=== PATIENT | male | born 1950 | race Caucasian/White ===

== ENCOUNTER 2020-08-13 08:37 | Emergency (ER) | payer OTHER ==
[2020-08-13 10:08] LABS: BILIRUBIN NEGATIVE (NEGATIVE); BLOOD NEGATIVE Ery/uL (NEGATIVE); CLARITY CLEAR (CLEAR); COLOR YELLOW (YELLOW); GLUCOSE (U) NORMAL (NORMAL); LEUKOCYTES NEGATIVE Leu/uL (NEGATIVE); NITRITE NEGATIVE (NEGATIVE); PROTEIN NEGATIVE (NEGATIVE); SPECIFIC GRAVITY 1.015 (1.001-1.030); pH 7.5 (5.0-9.0)
[2020-08-13 10:11] LABS: BASOPHIL 0.4 % (0-2); EOSINOPHIL 1.1 % (0-7); HCT 47.1 % (42.0-52.0); HGB 15.9 g/dl (13.2-18.0); LYMPHOCYTE 18.1 % (15-48); MCH 32.1 pg (25.0-31.0); MCHC 33.8 g/dL (32.0-36.0); MONOCYTE 6.4 % (0-12); MPV 10.1 fL (6.0-9.5); NEUTROPHIL 72.9 % (41-80); NRBC 0; PLT 269 K/uL (150-400); RBC 4.96 M/uL (4.70-6.00); RDW 12.1 % (11.5-14.0); WBC 7.2 K/uL (4.0-10.5)
[2020-08-13 10:29] LABS: ALBUMIN 3.9 g/dL (3.4-5.0); BILIRUBIN - TOTAL 0.9 mg/dL (0.2-1.0); BUN/CREAT RATIO (CALC) 14.3 RATIO; CREATININE 0.98 mg/dL (0.67-1.17); GLOBULIN (CALCULATION) 3.2 g/dL; POTASSIUM 4.1 mmol/L (3.5-5.1); TOTAL PROTEIN 7.1 g/dL (6.4-8.2)
[2020-08-13] MEDS ORDERED: METRONIDAZOLE500 MG PO (11:00)
[2020-08-13] MEDS ORDERED: BENTYL10 MG PO (11:00)
[2020-08-13] MEDS ORDERED: ONDANSETRON ODT4 MG PO (11:00)
[2020-08-13] MEDS ORDERED: CEFDINIR300 MG PO (11:00)
== END 2020-08-13 11:19 | disposition home or self-care (01) ==
LOC: FER 08:37
PROVIDERS: Emergency Medicine
DX: R10.84 Generalized abdominal pain (principal); R11.0 Nausea
CPT/HCPCS: 36415; 74019; 80053; 81003; 85025

== ENCOUNTER 2020-08-14 22:42 | Emergency (ER) | payer OTHER ==
[~2020-08-14 22:42] MED LIST: BENTYL10 MG PO; CEFDINIR300 MG PO; METRONIDAZOLE500 MG PO; ONDANSETRON ODT4 MG PO
[2020-08-15] MEDS ORDERED: FLEET ENEMA133 ML PR (01:37)
[2020-08-15] MEDS ORDERED: CITRATE OF MAG296 ML PO (01:37)
== END 2020-08-15 01:46 | disposition home or self-care (01) ==
LOC: FER 22:42
DX: K59.00 Constipation, unspecified (principal); I10 Essential (primary) hypertension; F17.290 Nicotine dependence, other tobacco product, uncomplicated; Z87.19 Personal history of other diseases of the digestive system
CPT/HCPCS: 74018